=== PATIENT | female | born 1940 | race Caucasian/White ===

== ENCOUNTER 2018-02-04 20:30 | Inpatient (IN) | payer MEDICARE, OTHER ==
[~2018-02-04] VITALS: Ht 162.6 cm; Wt 95.7 kg
[~2018-02-04 20:30] MED LIST: ATOR40TA PO; CARB200T PO; CITA20TA16 PO; GEMF600T4 PO; LEVO500T75 PO; LOSA100T15 PO; TRAM50TA2 PO
[2018-02-04] MEDS ORDERED: ONDANSETRON HCL/PF 4 MG/2 ML VIAL IVP ONE (21:30)
[2018-02-04] MEDS ORDERED: MORPHINE SULFATE INJ 2 MG/ML DISP.SYRIN IV ONE (21:30)
[2018-02-04] MEDS ORDERED: IV NS 0.9% 1,000 ML BAG IV ONE ×2 (21:30→22:30)
[2018-02-04 21:55] LABS: BASOPHILS # (AUTO) 0.1 /CMM (0.0-0.2); BASOPHILS % (AUTO) 0.2 % (0.0-2.0); EOSINOPHILS % (AUTO) 1.2 % (0.0-6.0); HEMATOCRIT 28 % (33-45); HEMOGLOBIN 8.7 g/dL (11.5-14.8); LYMPHOCYTES # (AUTO) 2.9 /CMM (0.8-4.8); MEAN CORPUSCULAR HGB CONC 32 g/dl (31.0-36.0); MEAN CORPUSCULAR VOLUME 92 fL (82-100); MONOCYTES # (AUTO) 0.2 /CMM (0.1-1.30); MONOCYTES % (AUTO) 0.6 % (2.0-12.0); NEUTROPHILS # (AUTO) 33.2 /CMM (1.8-8.9); RDW COEFFICIENT OF VARIATION 16.5 (11.5-15.0); RED BLOOD CELL COUNT(AUTO) 3.02 MIL/uL (4.0-5.2)
[2018-02-04 21:58] LABS: PLATELET COUNT (AUTO) 48 /CMM (150-450)
[2018-02-04 21:59] LABS: WHITE BLOOD COUNT (AUTO) 36.9 K/uL (4.3-11.0)
[2018-02-04] MEDS ORDERED: ONDANSETRON HCL/PF 4 MG/2 ML VIAL ONE (22:03)
[2018-02-04] MEDS ORDERED: MORPHINE SULFATE INJ 4 MG/ML DISP.SYRIN ONE (22:03)
[2018-02-04 22:13] LABS: TROPONIN I < 0.017 ng/mL (0.00-0.056)
[2018-02-04] MEDS ORDERED: AZTREONAM 1 G VIAL ONE (22:23)
[2018-02-04] MEDS ORDERED: VANCOMYCIN 1 GM VIAL ONE (22:23)
[2018-02-04] MEDS ORDERED: AZTREONAM 2 G in IV NS 0.9% 100 ML IV ONE (22:30)
[2018-02-04] MEDS ORDERED: VANCOMYCIN 1 GM in IV D5W 250 ML IV ONE (22:30)
[2018-02-04 22:35] LABS: CALCIUM, SERUM 8.9 mg/dL (8.5-10.1); CARBON DIOXIDE 18 mmol/L (21-32); CHLORIDE 97 mmol/L (98-107); CREATININE 1.1 mg/dL (0.6-1.3); GLUCOSE 119 mg/dL (74-106); POTASSIUM 4.3 mmol/L (3.5-5.1); SODIUM SERUM 129 mmol/L (136-145); UREA NITROGEN, BLOOD 26 mg/dL (7-18)
[2018-02-04 22:36] LABS: BAND % (MANUAL) 12 % (0.0-5.0); EOSINOPHILS % (MANUAL) 2 % (0-4); LYMPHOCYTES % (MANUAL) 8 % (16-48); MONOCYTES % (MANUAL) 2 % (0-11.0); NEUTROPHILS % (MANUAL) 76 (42-76)
[2018-02-04 22:42] LABS: ALANINE AMINOTRANSFERASE 82 U/L (12-78); ALBUMIN 2.2 g/dL (3.4-5.0); ALKALINE PHOSPHATASE 377 U/L (46-116); ASPARTATE AMINOTRANSFERASE 153 U/L (15-37); BILIRUBIN,DIRECT 0.7 mg/dL (0.0-0.2); BILIRUBIN,TOTAL 1.2 mg/dL (0.2-1.0); LIPASE 174 U/L (73-393); TOTAL PROTEIN, SERUM 6.9 g/dL (6.4-8.2)
--- NOTE | 2018-02-04 22:53 | NUR ---
CALLED RADIOLOGY FOR CXR
--- NOTE | 2018-02-04 22:59 | NUR ---
RADIOLOGY AT BEDSIDE FOR CXR
--- NOTE | 2018-02-04 23:21 | NUR ---
CALLED [facility] FOR PANEL CALL AND DR OBRIEN WAS PAGED.
[2018-02-04] MEDS ORDERED: CT SWABBABLE VALVE TRANS SET 1 EA INFUS.SET MC ONE (23:28)
[2018-02-04] MEDS ORDERED: IV NS 0.9% 250 ML IV ONE (23:28)
[2018-02-04] MEDS ORDERED: IOHEXOL-300 100 ML VIAL IV ONE (23:28)
[2018-02-04 23:41] LABS: APPEARANCE,URINE CLEAR (CLEAR); BILIRUBIN,URINE 1+ (NEGATIVE); BLOOD, URINE NEGATIVE Ery/uL (NEGATIVE); COLOR,URINE YELLOW (YELLOW); KETONES,URINE NEGATIVE (NEGATIVE); LEUKOCYTE ESTERASE ,URINE NEGATIVE (NEGATIVE); NITRITE, URINE NEGATIVE (NEGATIVE); PROTEIN,URINE NEGATIVE (NEGATIVE); UGLUCOSE NEGATIVE (NEGATIVE)
[2018-02-04 23:48] LABS: BACTERIA,URINE None seen /HPF (None Seen); RBC,URINE NONE SEEN /HPF (0-2); SQUAMOUS EPITHELIAL CELL,UR Few /HPF (None Seen); WBC,URINE 0-2 /HPF (0-3)
[2018-02-05] VITALS (7 sets, daily range): BP systolic 94–150; BP diastolic 34–94
--- NOTE | 2018-02-05 00:05 | NUR ---
CALLED RN SUP FOR MS BED.
--- NOTE | 2018-02-05 00:09 | NUR ---
DR. OBRIEN AT BEDSIDE FOR EVAL.
[2018-02-05] MEDS ORDERED: BRIM5DRO2 OP (00:20)
[2018-02-05] MEDS ORDERED: CLON0.1T PO (00:20)
[2018-02-05] MEDS ORDERED: ZOLP5TAB8 PO (00:20)
[2018-02-05] MEDS ORDERED: MAGN400T6 PO (00:20)
[2018-02-05] MEDS ORDERED: NIFE60TA69 PO (00:20)
[2018-02-05] MEDS ORDERED: KETO5DRO83 EACHEYE (00:20)
[2018-02-05] MEDS ORDERED: HYDR-4076 PO (00:20)
[2018-02-05] MEDS ORDERED: ZOLPIDEM TARTRATE 5 MG TABLET PO PRN (00:30)
--- NOTE | 2018-02-05 00:30 | NUR ---
PT ASSIGNED TO MS 109
[2018-02-05] MEDS ORDERED: MORPHINE SULFATE INJ 2 MG/ML DISP.SYRIN IV PRN (01:00)
[2018-02-05] MEDS ORDERED: ALBUTEROL HALF STRENGTH 1.25 MG/3 ML VIAL.NEB NEB PRN (01:00)
[2018-02-05] MEDS ORDERED: ONDANSETRON HCL/PF 4 MG/2 ML VIAL IVP PRN (01:00)
[2018-02-05] MEDS ORDERED: IPRATROPIUM NEB FS 0.5 MG/2.5 ML AMPUL.NEB NEB PRN (01:00)
[2018-02-05] MEDS ORDERED: MAGNESIUM HYDROXIDE 30 ML UDC PO PRN (01:00)
--- NOTE | 2018-02-05 01:28 | NUR ---
PT ADMIT TO TEL FIRST FLOOR, REPORT GIVEN TO TAPAN BRAUN FOR JESSY, PT IN STABLE CONDITION, TRANSPORTED ON RBANNER, ABLE TO AMBULATE TO BED UPON ARRIVAL TO ROOM ASSIGNED 109. ALL PERSONAL BELONGINGS ACCOUNTED AND DOCUMENTED W/FAMILY.
--- NOTE | 2018-02-05 01:35 | NUR ---
TURNTABLE WORKER NOTE RECEIVED PATIENT FROM ER FOR ADMISSION, PATIENT IS ALERT AND ORIENTEDX4, BAHRAINI SPEAKER ONLY, DENIES RESPIRATORY DISTRESS AND COMPLAINS OF MILD ABDOMINAL PAIN 4/10 AT THIS TIME. IV ON RIGHT AC IS PATENT AND INTACT, WILL CONNECT TO HER ABX. NO EDEMA, NO SKIN ISSUES NOTED. SRX2, BED IN LOW POSITION, CALL LIGHT WITHIN REACH, WILL CONTINUE TO MONITOR PATIENT.
[2018-02-05] MEDS ORDERED: LEVOFLOXACIN 500 MG /D5W 100ML 100 ML IV ONE (01:38)
[2018-02-05] MEDS: LEVOFLOXACIN 500 MG /D5W 100ML 500 MG in PREMIX 1 EA IV SCH ×2 (02:24→22:04)
[2018-02-05 05:46] LABS: BASOPHILS # (AUTO) 0.1 /CMM (0.0-0.2); BASOPHILS % (AUTO) 0.3 % (0.0-2.0); EOSINOPHILS % (AUTO) 1.9 % (0.0-6.0); HEMATOCRIT 26 % (33-45); LYMPHOCYTES # (AUTO) 2.6 /CMM (0.8-4.8); LYMPHOCYTES % (AUTO) 8.7 % (20.0-44.0); MEAN CORPUSCULAR HGB CONC 31 g/dl (31.0-36.0); MEAN CORPUSCULAR VOLUME 92 fL (82-100); MONOCYTES # (AUTO) 0.4 /CMM (0.1-1.30); MONOCYTES % (AUTO) 1.3 % (2.0-12.0); NEUTROPHILS # (AUTO) 26.5 /CMM (1.8-8.9); NEUTROPHILS % (AUTO) 87.8 % (43.0-81.0); RDW COEFFICIENT OF VARIATION 16.5 (11.5-15.0); RED BLOOD CELL COUNT(AUTO) 2.77 MIL/uL (4.0-5.2)
[2018-02-05 05:49] LABS: WHITE BLOOD COUNT (AUTO) 30.1 K/uL (4.3-11.0)
[2018-02-05 05:50] LABS: PLATELET COUNT (AUTO) 45 /CMM (150-450)
[2018-02-05 05:57] LABS: ALANINE AMINOTRANSFERASE 89 U/L (12-78); ALBUMIN 1.9 g/dL (3.4-5.0); ALKALINE PHOSPHATASE 334 U/L (46-116); ASPARTATE AMINOTRANSFERASE 182 U/L (15-37); BILIRUBIN,TOTAL 1.1 mg/dL (0.2-1.0); CALCIUM, SERUM 8.4 mg/dL (8.5-10.1); CARBON DIOXIDE 21 mmol/L (21-32); CHLORIDE 100 mmol/L (98-107); CREATININE 0.9 mg/dL (0.6-1.3); GLUCOSE 107 mg/dL (74-106); MAGNESIUM 1.9 mg/dL (1.8-2.4); PHOSPHORUS 3.9 mg/dL (2.5-4.9); POTASSIUM 4.5 mmol/L (3.5-5.1); SODIUM SERUM 131 mmol/L (136-145); TOTAL PROTEIN, SERUM 6.1 g/dL (6.4-8.2); UREA NITROGEN, BLOOD 25 mg/dL (7-18)
[2018-02-05 06:07] LABS: CHOLESTEROL 121 mg/dL (<200); HDL CHOLESTEROL 19 mg/dL (40-60); LDL 81 mg/dL (0-99); THYROID STIMULATING HORMONE 4.204 uIU/mL (0.358-3.74); TRIGLYCERIDES 119 mg/dL (30-150); URIC ACID 5.7 mg/dL (2.6-7.2)
--- NOTE | 2018-02-05 06:23 | NUR ---
DEFECT CUTTER NOTE PATIENT IS RESTING IN BED COMFORTABLY, NO ACUTE DISTRESS PRESENT SINCE THE ADMISSION. TELE MONITOR SR 74. IV ON RIGHT AC IS PATENT AND INTACT, KVO. WILL ENDORSE TO DAY SHIFT NURSE FOR JESSY.
--- NOTE | 2018-02-05 07:00 | NUR ---
READING INTERVENTIONIST OPENING NOTES RECEIVED PT ON BED,ALERT/ORIENTED X4 WITH KINYARWANDA SPEAKING.ON 2 L O2 VIA NC CONTINUOUSLY WITH O2 SAT 95%.NO SOB AND ACUTE DISTRESS NOTED.ON TELE HR IS 70'S WITH SINUS RHYTHM.IV LINE IS ON RIGHT AC G20,SITE IS CLEAN,DRY AND INTACT.SAFETY IS MAINTAINED AT ALL TIMES.BED IS IN LOW POSITION AND LOCKED.CALL LIGHT IS WITHIN REACH.WILL CONTINUOUSLY TO MONITOR THE PT CLOSELY.
[2018-02-05] MEDS: PANTOPRAZOLE 40 MG TABLET.DR PO SCH (08:41)
[2018-02-05] MEDS: CARBAMAZEPINE 200 MG TABLET PO SCH (08:41)
[2018-02-05] MEDS: DOCUSATE SODIUM 100 MG CAPSULE PO SCH ×2 (08:42→16:52)
[2018-02-05] MEDS: CITALOPRAM HYDROBROMIDE 20 MG TABLET PO SCH (08:42)
[2018-02-05] MEDS: hydrALAZINE HCL 25 MG TABLET PO SCH ×2 (09:00→17:00)
--- NOTE | 2018-02-05 09:15 | NUR ---
WAREHOUSE RECORD CLERK NOTES SEEN THE PT AND EXPLAINED THE DISEASE CONDITION TO THE FAMILY.FAMILY UNDERSTOOD. IS PLANNING TO DO LIVER BIOPSY THE FOLLOWING DAYSN AND ORDERED TO KEEP NPO PRIOR TO DO THE PROCEDURE.EXPLAINED TO THE PT AND FAMILY.
[2018-02-05] MEDS: LOSARTAN POTASSIUM 50 MG TABLET PO SCH (10:14)
[2018-02-05] MEDS: NIFEdipine XL 60 MG TAB PO SCH (10:15)
[2018-02-05 11:36] LABS: BAND % (MANUAL) 2 % (0.0-5.0); EOSINOPHILS % (MANUAL) 1 % (0-4); LYMPHOCYTES % (MANUAL) 9 % (16-48); MONOCYTES % (MANUAL) 3 % (0-11.0); NEUTROPHILS % (MANUAL) 85 (42-76)
[2018-02-05] MEDS: KETOROLAC EYE 0.5% 3 ML BOTTLE EACHEYE SCH ×3 (13:00→22:29)
--- NOTE | 2018-02-05 18:28 | NUR ---
COLD WORKING INSPECTOR CLOSING NOTES PT IS ON BED.ALERT/ORIENTED X4.ON 2 L O2 VIA NC CONTINUOUSLY,TOLERATING WELL.DENIES PAIN.PERIPHERAL IV LINE IS ON RIGHT AC G 20,SITE IS CLEAN,DRY AND INTACT.WILL ENDORSE TO THE SUPERVISOR INTERNATIONAL RESERVATIONS RN TO KEEP PT ON NPO FROM MIDNIGHT ONWARDS FOR THE FOLLOWING DAY PROCEDURE.
[2018-02-05] MEDS: ACETAMINOPHEN 325 MG TABLET PO PRN (18:42)
--- NOTE | 2018-02-05 19:20 | NUR ---
RN NOTES APTIENT IN BED, ALERT AND ORIENTED, IN NO DISTRESS. FAMILY AT BEDSIDE. ALL PATIENT'S NEEDS ATTENDED TO. WILL CONTINUE TO MONITOR.
[2018-02-05 20:30] LABS: INR 1.59 (0.87-1.13)
[2018-02-05] MEDS: MAGNESIUM OXIDE 400 MG TABLET PO SCH (22:04)
[2018-02-06] VITALS (15 sets, daily range): BP systolic 112–165; BP diastolic 42–62
--- NOTE | 2018-02-06 06:53 | NUR ---
JIG OPERATOR NOTES PATIENT IN BED, ASLEEP BUT EASILY AROUSABLE, IN NO DISTRESS AT THIS TIME, NO C/O ABDOMINAL PAIN, NPO POST MIDNIGHT, ALL PATIENT'S NEEDS ATTENDED TO THROUGHOUT THE SHIFT. WILL ENDORSE TO AM SHIFT NURSE FOR CONTINUITY OF CARE.
--- NOTE | 2018-02-06 07:10 | NUR ---
MANOMETER TECHNICIAN OPENING NOTES RECEIVED PT ON BED.ALERT/ORIENTED X4,PITCAIR[place] ISLANDER SPEAKING PT.ON O2 2L VIA NC CONTINUOUSLY WITH O2 SAT.97%/ON TELE HR IS 84 WITH SIUS RHYTHM.NO SOB AND ACUTE DISTRESS NOTED.PT IS ON NPO FOR SURGERY.PERIPHERAL IV LINE IS ON LEFT FA G22,SITE IS CLEAN DRY AND INTACT.SAFETY IS MAINTAINED ALL THE TIME.BED IS IN LOW POSITION AND LOCKED.CALL LIGHT IS WITHIN REACH.WILL CONTINUE TO MONITOR THE PT CLOSELY.
[2018-02-06] MEDS: PANTOPRAZOLE 40 MG TABLET.DR PO SCH (07:30)
[2018-02-06] MEDS: NIFEdipine XL 60 MG TAB PO SCH (09:00)
[2018-02-06] MEDS: DOCUSATE SODIUM 100 MG CAPSULE PO SCH ×2 (09:00→17:33)
[2018-02-06] MEDS: KETOROLAC EYE 0.5% 3 ML BOTTLE EACHEYE SCH ×4 (09:00→21:54)
[2018-02-06] MEDS: CARBAMAZEPINE 200 MG TABLET PO SCH (09:00)
[2018-02-06] MEDS: LOSARTAN POTASSIUM 50 MG TABLET PO SCH (09:00)
[2018-02-06] MEDS: hydrALAZINE HCL 25 MG TABLET PO SCH ×2 (09:00→17:32)
[2018-02-06] MEDS: CITALOPRAM HYDROBROMIDE 20 MG TABLET PO SCH (09:00)
--- NOTE | 2018-02-06 10:30 | NUR ---
AS400 PROGRAMMER ANALYST NOTES FROM US CALLED AND SAID THE PT PLATELET IS LOW AND INR IS HIGH,HOLD LIVER BIOPSY TODAY.VERIFIED WITH RADIOLOGIST. MADE AWARE.
--- NOTE | 2018-02-06 10:45 | NUR ---
OLIVE GRADER NOTES ORDERED TO GIVE 1 UNIT OF FFP AND 6 PACKS OF PLATELETS.NEW ORDERS NOTED AND CARRIED OUT.
--- NOTE | 2018-02-06 11:30 | NUR ---
HIGHWAY RESEARCH ENGINEER NOTES FROM RADIOLOGY CALLED AND INFORMED THEY SCHEDULED FOR LIVER BIOPSY US WITH CT GUIDED NEEDLE BIOPSY TOMORROW. MADE AWARE.WAITING FOR THE CONSENT FROM THE FAMILY.
--- NOTE | 2018-02-06 13:50 | NUR ---
SURVEYOR CHAIN HELPER NOTES STARTED TO INFUSE 1 UNIT OF FFP,VITAL SIGNS CHECKED AND IT IS WNL.NO COMPLICATIONS NOTED.
[2018-02-06] MEDS: ACETAMINOPHEN 325 MG TABLET PO PRN (18:52)
--- NOTE | 2018-02-06 18:55 | NUR ---
GARMENT CUTTER CLOSING NOTES PT IS ON BED.ALERT/ORIENTED X3.PERIPHERAL IV LINE IS ON LEFT AC G22,SITE IS CLEAN DRY AND INTACT.TRANSFUSING FFP,CONTINUE TO MONITOR.NO COMPLICATIONS NOTED AT THIS TIME.BED IS IN LOW POSITION AND LOCKED.FAMILY IS AT BEDSIDE.ENDORSED TO NANNY CAREGIVER RN TO MONITOR THE PT AND KEEP NPO FROM MIDNIGHT ONWARDS FOR TOMORROW SURGERY.
--- NOTE | 2018-02-06 19:10 | NUR ---
NURSING TECHNICIAN OPENING NOTE Patient was seen sitting upright in bed, AAOx4, breathing on 2L O2 NC with no SOB, and no signs of acute distress. Telemonitor shows sinus rhythm in the 80s. IV in the left FA is infusing FFP with no signs of leaking or infiltration. Bed is low/locked, two side rails up, and call gusman within reach. Family is at the bedside and able to translate [place]/English. Patient has no immediate needs/concerns at this time. Will continue to monitor.
[2018-02-06] MEDS: MAGNESIUM OXIDE 400 MG TABLET PO SCH (21:54)
[2018-02-06] MEDS: LEVOFLOXACIN 500 MG /D5W 100ML 500 MG in PREMIX 1 EA IV SCH (22:24)
[2018-02-07] VITALS (18 sets, daily range): BP systolic 29–167; BP diastolic 14–90
[2018-02-07 02:15] LABS: AFP, TUMOR MARKER 4.4 ng/mL (0.0-8.3)
[2018-02-07 05:48] LABS: BASOPHILS # (AUTO) 0.1 /CMM (0.0-0.2); BASOPHILS % (AUTO) 0.5 % (0.0-2.0); EOSINOPHILS % (AUTO) 2.4 % (0.0-6.0); HEMATOCRIT 23 % (33-45); HEMOGLOBIN 7.4 g/dL (11.5-14.8); LYMPHOCYTES # (AUTO) 1.5 /CMM (0.8-4.8); LYMPHOCYTES % (AUTO) 5.9 % (20.0-44.0); MEAN CORPUSCULAR HGB CONC 32 g/dl (31.0-36.0); MEAN CORPUSCULAR VOLUME 92 fL (82-100); MONOCYTES # (AUTO) 0.8 /CMM (0.1-1.30); MONOCYTES % (AUTO) 3.1 % (2.0-12.0); NEUTROPHILS # (AUTO) 22.3 /CMM (1.8-8.9); NEUTROPHILS % (AUTO) 88.1 % (43.0-81.0); RDW COEFFICIENT OF VARIATION 17.3 (11.5-15.0); RED BLOOD CELL COUNT(AUTO) 2.52 MIL/uL (4.0-5.2); WHITE BLOOD COUNT (AUTO) 25.3 K/uL (4.3-11.0)
[2018-02-07 06:00] LABS: PLATELET COUNT (AUTO) 50 /CMM (150-450)
[2018-02-07 06:08] LABS: INR 1.12 (0.87-1.13)
[2018-02-07 06:09] LABS: ALANINE AMINOTRANSFERASE 101 U/L (12-78); ALKALINE PHOSPHATASE 335 U/L (46-116); ASPARTATE AMINOTRANSFERASE 171 U/L (15-37); BILIRUBIN,TOTAL 1.3 mg/dL (0.2-1.0); CALCIUM, SERUM 8.5 mg/dL (8.5-10.1); CARBON DIOXIDE 26 mmol/L (21-32); CHLORIDE 100 mmol/L (98-107); CREATININE 0.8 mg/dL (0.6-1.3); GLUCOSE 106 mg/dL (74-106); POTASSIUM 4.1 mmol/L (3.5-5.1); SODIUM SERUM 133 mmol/L (136-145); TOTAL PROTEIN, SERUM 6.2 g/dL (6.4-8.2); UREA NITROGEN, BLOOD 16 mg/dL (7-18)
--- NOTE | 2018-02-07 07:32 | NUR ---
TUBING TESTER CLOSING NOTE Patient is sleeping in bed, breathing on 2L O2 NC with no SOB, and no signs of acute distress. Telemonitor shows sinus rhythm in the 80s. IV in the left FA is intact and patent. Bed is low/locked, two side rails up, and call gusman within reach. Patient had no complications over night. Care endorsed to day shift nurse.
[2018-02-07] MEDS: hydrALAZINE HCL 25 MG TABLET PO SCH ×2 (09:00→16:43)
[2018-02-07] MEDS: LOSARTAN POTASSIUM 50 MG TABLET PO SCH (09:00)
[2018-02-07] MEDS ORDERED: NALOXONE PREFILLED SYRINGE 2 MG/2 ML SYRINGE IV ONE (10:00)
[2018-02-07] MEDS ORDERED: MIDAZOLAM HCL 5MG/ML VIAL 25 MG/5 ML VIAL IV ONE (10:00)
[2018-02-07] MEDS ORDERED: FENTANYL PF 250MCG/5ML AMPUL IV ONE (10:00)
[2018-02-07] MEDS ORDERED: FUROSEMIDE 20 MG/2 ML VIAL IV ONE (10:00)
[2018-02-07] MEDS: CITALOPRAM HYDROBROMIDE 20 MG TABLET PO SCH (10:29)
[2018-02-07] MEDS: CARBAMAZEPINE 200 MG TABLET PO SCH (10:29)
[2018-02-07] MEDS: KETOROLAC EYE 0.5% 3 ML BOTTLE EACHEYE SCH ×3 (10:29→16:43)
[2018-02-07] MEDS: DOCUSATE SODIUM 100 MG CAPSULE PO SCH ×2 (10:30→16:44)
[2018-02-07] MEDS: PANTOPRAZOLE 40 MG TABLET.DR PO SCH (10:30)
[2018-02-07] MEDS: NIFEdipine XL 60 MG TAB PO SCH (10:32)
[2018-02-07] MEDS ORDERED: LIDOCAINE 1% INJ 50 ML MDV IJ ONE (11:06)
--- NOTE | 2018-02-07 11:08 | NUR ---
ATHLETIC AGENT NOTE PATIENT LEFT FOR LIVER BIOPSY [place]IA [place] IN STABLE CONDITION.
--- NOTE | 2018-02-07 11:08 | NUR ---
SHERIFFS DETECTIVE NOTES DISCUSSED WITH RN REGARDING LABS RESULT , PER RN MD IS AWARE OK TO PROCEED WITH CT BIOSY OF THE LIVER .
--- NOTE | 2018-02-07 12:25 | NUR ---
OFFICE MOVER NOTE PATIENT RETURNED FROM LIVER BIOPSY WITH CLEAN RICE BROKER. VITAL SIGNS STABLE, PATIENT COMPLAINING OF NAUSEA, WILL ADMINISTER IV ZOFRAN. PLACED ON RIGHT SIDE, ON CONTINUOUS CARDIAC AND BP MONITORING. WILL CONTINUE TO MONITOR.
--- NOTE | 2018-02-07 12:35 | NUR ---
MANAGER RESEARCH DEVELOPMENT NOTES CALLED DR SOLOMON , DISCUSSED THAT PT IS HYPOTENSIVE 70/42 SR 60-65 ON BEDSIDE MONITOR TEMP OF 98.1 AXILLARY , DENIES ANY PAIN AND SOB , BUT COMPLAINING THAT SHE IS NAUSEATED , NO ACTIVE BLEEDING NOTED AT BIOPSY SITE , PER MD HE IS RECOMMENDING CT SCAN OF THE ABDOMEN WITH CONTRAST , PAGED DR ARMSTRONG ON EXCHANGE , AWAITING FOR CALL BACK
--- NOTE | 2018-02-07 12:55 | NUR ---
DATA SCIENCE AND IOT MANAGER NOTES @ 1250 PATIENT ON THE MONITOR , SR 65 ON BEDSIDE MONITOR , RESPONSIVE TO TACTILE STIMULI , COLD CLAMMY SKIN WITH LOW BLOOD PRESSURE OF 71/41 , PLACED PT ON NON REBREATHER MASK @ 15LPM , CALLED WHEEL BORER , 1255 , PT FOUND UNRESPONSIVE , PULSELESS , CODE BLUE CALLED CPR STARTED , ATTACHED PT ON THE CRASH CART MONITOR , DR MEJÍA AT BEDSIDE , DISCUSSED PT IS S/P CT GUIDED LIVER BIOPSY SUDDENLY PT BECAME HYPOTENSIVE , COLD AND CLAMMY AND LESS RESPONSIVE BS OF 165 , DISCUSSED PT HISTORY AND LABS , DR ARMSTRONG AND DR SOLOMON AT BEDSIDE , SEE CODE BLUE SHEET .
--- NOTE | 2018-02-07 13:07 | NUR ---
ROLLER STRUCTURAL MILL NOTES DR MEJÍA INTUBATED THE PT , VERIFIED LUNG SOUNDS BILATERALLY (+) BREATH SOUNDS , BAGGED PT WITH 15LPM SPO2 OF 99% ,
--- NOTE | 2018-02-07 13:23 | NUR ---
SYSTEMS DESIGNER NOTES LEVOPHED STARTED @ 40MCG/MIN MAX DOSE PER DR MEJÍA (ER) UNABLE TO DETERMINE BLOOD PRESSURE ,
[2018-02-07] MEDS ORDERED: PHENYLEPHRINE 80 MG in IV D5W 250 ML IV PRN (13:30)
[2018-02-07 13:57] LABS: BASOPHILS # (AUTO) 0.1 /CMM (0.0-0.2); BASOPHILS % (AUTO) 0.5 % (0.0-2.0); LYMPHOCYTES # (AUTO) 5.4 /CMM (0.8-4.8); LYMPHOCYTES % (AUTO) 21.6 % (20.0-44.0); MEAN CORPUSCULAR HGB CONC 30 g/dl (31.0-36.0); MEAN CORPUSCULAR VOLUME 95 fL (82-100); MONOCYTES # (AUTO) 0.3 /CMM (0.1-1.30); MONOCYTES % (AUTO) 1.2 % (2.0-12.0); NEUTROPHILS % (AUTO) 75.7 % (43.0-81.0); WHITE BLOOD COUNT (AUTO) 25.1 K/uL (4.3-11.0)
--- NOTE | 2018-02-07 14:00 | NUR ---
WELL PULLER HEAD NOTE PATIENT NOTED TO BE COOL AND CLAMMY, SYSTOLIC BLOOD PRESSURE IN THE 90S. ICU NURSE AT BEDSIDE, ADVISED TO CALL RAPID RESPONSE. RAPID RESPONSE CALLED. RAPID RESPONSE CHANGED TO CODE BLUE DUE TO PATIENT RAPIDLY DETERIORATING. CODE BLUE STARTED AT 12:55.
--- NOTE | 2018-02-07 14:10 | NUR ---
MERCHANDISING STOCK ASSOCIATE NOTES NEOSYNEPRINE STARTED AT MAX DOSE PER DR ARMSTRONG AT BEDSIDE ,
[2018-02-07 14:22] LABS: ALANINE AMINOTRANSFERASE 104 U/L (12-78); ALBUMIN 1.5 g/dL (3.4-5.0); ALKALINE PHOSPHATASE 253 U/L (46-116); ASPARTATE AMINOTRANSFERASE 219 U/L (15-37); BILIRUBIN,TOTAL 0.8 mg/dL (0.2-1.0); CALCIUM, SERUM 11.6 mg/dL (8.5-10.1); CARBON DIOXIDE 32 mmol/L (21-32); CHLORIDE 112 mmol/L (98-107); CREATININE 1.1 mg/dL (0.6-1.3); GLUCOSE 125 mg/dL (74-106); MAGNESIUM 2.4 mg/dL (1.8-2.4); TOTAL PROTEIN, SERUM 4.5 g/dL (6.4-8.2); UREA NITROGEN, BLOOD 15 mg/dL (7-18)
[2018-02-07 14:24] LABS: TROPONIN I < 0.017 ng/mL (0.00-0.056)
[2018-02-07] MEDS ORDERED: VASOPRESSIN INJ 50 UNIT in IV D5W 497.5 ML IV PRN ×2 (14:30→17:00)
--- NOTE | 2018-02-07 14:30 | NUR ---
Pt intubated by Dr. Helm and placed on mechanical vent with ordered vent settings. Pt 7.5 ETT secured at 22cm at the lip. Vent is plugged into a red outlet, alarms are set and audible, and BMV is at bedside. Addendum: 02/07/18 at 1452 by EMORY DYKES RT Amended: Links added.
[2018-02-07 14:33] LABS: HEMATOCRIT 13 % (33-45); HEMOGLOBIN 3.9 g/dL (11.5-14.8); PLATELET COUNT (AUTO) 33 /CMM (150-450); RED BLOOD CELL COUNT(AUTO) 1.36 MIL/uL (4.0-5.2)
[2018-02-07 14:34] LABS: SODIUM SERUM 162 mmol/L (136-145)
--- NOTE | 2018-02-07 14:34 | NUR ---
FIELD ADJUSTER NOTES CRITICAL RESULTS RELAYED TO DR NATHANIEL NUNEZ OF 162 PHOS OF 8.3 H/H 3.9 / 129 RBC 1.36 PER MD GIVE 2 UNITS PRBC STATS , ORDERS CARRIED OUT
[2018-02-07 14:35] LABS: PHOSPHORUS 8.3 mg/dL (2.5-4.9)
[2018-02-07] MEDS ORDERED: Calcium Gluconate 0.465 MEQ/ML VIAL IV STA (14:40)
[2018-02-07] MEDS ORDERED: ATROPINE SULFATE 1 MG/10 ML DISP.SYRIN ONE ×2 (14:56→16:42)
[2018-02-07] MEDS ORDERED: EPINEPHRINE (1:10,000) SYRINGE 1 MG/10 ML DISP.SYRIN ONE ×2 (14:56→16:42)
[2018-02-07] MEDS ORDERED: SODIUM BICARBONATE SYR 50 MEQ/50 ML DISP.SYRIN ONE ×2 (14:56→16:42)
[2018-02-07] MEDS ORDERED: CALCIUM CHLORIDE 1,000 MG/10 ML DISP.SYRIN IV ONE ×2 (15:00→17:00)
--- NOTE | 2018-02-07 15:07 | NUR ---
STAMPING PRESS OPERATOR NOTES PT STARTED ON VASOPRESSIN SHOCK DOSE PER DR ARMSTRONG .
--- NOTE | 2018-02-07 15:20 | NUR ---
BAILER OPERATORS SUPERVISOR NOTES 4 UNITS OF BLOOD STARTED USING RAPID INFUSER BY DONOVAN EVERETT , @ LEFT IJ TLC ,
[2018-02-07] MEDS ORDERED: EPINEPHRINE (1:1000) 1 MG in IV D5W 250 ML IV PRN (16:00)
[2018-02-07] MEDS ORDERED: NOREPINEPHRINE 16 MG in IV NS 0.9% 500 ML IV PRN (16:00)
[2018-02-07 16:09] LABS: BAND % (MANUAL) 4 % (0.0-5.0); EOSINOPHILS % (MANUAL) 3 % (0-4); LYMPHOCYTES % (MANUAL) 25 % (16-48); MONOCYTES % (MANUAL) 4 % (0-11.0); NEUTROPHILS % (MANUAL) 59 (42-76)
[2018-02-07 16:10] LABS: METAMYELOCYTES % 2 % (0-0); MYELOCYTES % 3 % (0-0)
--- NOTE | 2018-02-07 16:25 | NUR ---
ED PHYSICIANS NOTES HERB PLACED BY DONOVAN EVERETT @ RIGHT FEMORAL GROIN ,
--- NOTE | 2018-02-07 16:40 | NUR ---
SACK CLEANER NOTES X4 UNITS OF PRBC GIVEN ORDERED VIA RAPID INFUSER ,
[2018-02-07] MEDS ORDERED: ETOMIDATE 2 MG/ML VIAL ONE (16:42)
[2018-02-07] MEDS ORDERED: SUCCINYLCHOLINE CHLORIDE 20 MG/ML VIAL ONE (16:42)
--- NOTE | 2018-02-07 16:53 | NUR ---
WEAPONS SYSTEM INSTRUMENT MECHANIC NOTES CALLED BLUE CALLED , PT IS PULSELESS , AGONAL RHYTHM ON THE MONITOR , DR BRIONES RESPOND , NOTIFIED PT HAD CODE X4 TIMES , DISCUSSED PT HISTORY AND DIAGNOSIS , ON MAX DOSE OF LEVOPHED , NORSYNEPHRINE VASOPRESSIN AND EPINEPHRINE DRIP , CPR STARTED , MANUALLY BAG THE PT ,
--- NOTE | 2018-02-07 16:59 | NUR ---
RN CVICU NOTES DR BRIONES PRONOUNCED AT 8886 , PT HAS NO AUDIBLE HEART TONES , RESPIRATIONS ARE ABSENT , PUPILS FIXED AND DILATED , NURSING MECHANICAL MANAGER NOTIFIED AND DR ARMSTORNG NOTIFIED ,
[2018-02-07] MEDS ORDERED: ATROPINE SULFATE 1 MG/10 ML DISP.SYRIN IV ONE (17:00)
[2018-02-07] MEDS ORDERED: EPINEPHRINE (1:1000) 2 MG in IV D5W 250 ML IV PRN (17:00)
[2018-02-07] MEDS ORDERED: EPINEPHRINE (1:1000) 1 MG/ML AMPUL SUBCUT ONE (17:02)
[2018-02-07] MEDS ORDERED: EPINEPHRINE (1:10,000) SYRINGE 1 MG/10 ML DISP.SYRIN IVP ONE (17:02)
--- NOTE | 2018-02-07 21:00 | NUR ---
ICU/RN-PT. POST MORTEM CARE DONE. TO NAVI NARAYAN/JEAN-PAUL PER PROTOCOL.
== END 2018-02-07 16:59 | disposition expired | DRG 871 ==
LOC: ER 20:33 → TELE1 02-05 00:43 → ICU 02-07 13:59
PROVIDERS: ADMIT Internal Medicine; ATTEND Internal Medicine
PROC: 30233K1 Transfusion of Nonautologous Frozen Plasma into Peripheral Vein, Percutaneous Approach (ICD-10-PCS; 2018-02-06)
PROC: 30233R1 Transfusion of Nonautologous Platelets into Peripheral Vein, Percutaneous Approach (ICD-10-PCS; 2018-02-06)
PROC: 5A1935Z Respiratory Ventilation, Less than 24 Consecutive Hours (ICD-10-PCS; principal; 2018-02-07)
PROC: 0BH17EZ Insertion of Endotracheal Airway into Trachea, Via Natural or Artificial Opening (ICD-10-PCS; 2018-02-07)
PROC: 30233N1 Transfusion of Nonautologous Red Blood Cells into Peripheral Vein, Percutaneous Approach (ICD-10-PCS; 2018-02-07)
PROC: 0FD13ZX Extraction of Right Lobe Liver, Percutaneous Approach, Diagnostic (ICD-10-PCS; 2018-02-07)
PROC: 05HN33Z Insertion of Infusion Device into Left Internal Jugular Vein, Percutaneous Approach (ICD-10-PCS; 2018-02-07)
PROC: B544ZZA Ultrasonography of Left Jugular Veins, Guidance (ICD-10-PCS; 2018-02-07)
PROC: 5A12012 Performance of Cardiac Output, Single, Manual (ICD-10-PCS; 2018-02-07)
DX: A41.9 Sepsis, unspecified organism (principal); E43 Unspecified severe protein-calorie malnutrition; J18.9 Pneumonia, unspecified organism; N17.0 Acute kidney failure with tubular necrosis; C22.9 Malignant neoplasm of liver, not specified as primary or secondary; E87.1 Hypo-osmolality and hyponatremia; D68.59 Other primary thrombophilia; C78.00 Secondary malignant neoplasm of unspecified lung; D62 Acute posthemorrhagic anemia; C78.89 Secondary malignant neoplasm of other digestive organs; K43.9 Ventral hernia without obstruction or gangrene; I10 Essential (primary) hypertension; Z98.890 Other specified postprocedural states; Z88.0 Allergy status to penicillin; Z79.899 Other long term (current) drug therapy; I11.9 Hypertensive heart disease without heart failure; D69.59 Other secondary thrombocytopenia; D69.6 Thrombocytopenia, unspecified; E86.0 Dehydration; Z74.09 Other reduced mobility; G89.29 Other chronic pain; M19.90 Unspecified osteoarthritis, unspecified site; G62.9 Polyneuropathy, unspecified; E66.9 Obesity, unspecified; H40.9 Unspecified glaucoma; Z80.8 Family history of malignant neoplasm of other organs or systems; Z68.36 Body mass index [BMI] 36.0-36.9, adult; Z90.49 Acquired absence of other specified parts of digestive tract; Z87.891 Personal history of nicotine dependence; E78.5 Hyperlipidemia, unspecified; K83.8 Other specified diseases of biliary tract; K59.09 Other constipation; K86.89 Other specified diseases of pancreas
CPT/HCPCS: 36415; 47000; 71045-TC; 71260-TC; 77012-TC; 80048-TC; 80053-TC; 80061-TC; 80076-TC; 81000-TC; 82105; 82378; 82962-TC; 83605-TC; 83690-TC; 83735-TC; 84100-TC; 84443-TC; 84484-TC; 84550-TC; 85025-TC; 85610-TC; 85730-TC; 86301; 86850-TC; 86921-TC; 87040-TC; 87081-TC; 88307-TC; 92950-TC; 93307-TC; 94002; A4216; A4606; C1751; G0378; J0171; J0330; J0461; J1956; J2250; J2270; J2310; J2370; J2405; J3010; J3370; J3490; J7030; J7040; J7050; J7060; P9016-BL; P9017-BL; P9034-BL; Q9967; Z7610